=== PATIENT | female | born 1975 | race African-American/Black ===

== ENCOUNTER 2021-11-29 13:46 | Emergency (ER) | payer MEDICAID, OTHER ==
[~2021-11-29] VITALS: Ht 172.7 cm; Wt 90.0 kg
[2021-11-29 15:06] LABS: BASOPHILS % 0.3 % (0.0-2.0); EOSINOPHILS % 1.1 % (0.0-5.0); HEMATOCRIT. 36.8 % (36.0-48.0); HEMOGLOBIN. 12.6 g/dL (12.0-16.0); LYMPHOCYTES % 23.2 % (20.0-50.0); MEAN CORPUSCULAR HEMOGLOBIN 28.7 pg (28.0-32.0); MEAN PLATELET VOLUME 9.3 fl (7.4-10.4); MONOCYTES % 4.7 % (2.0-8.0); NEUTROPHILS % 70.7 % (40.0-76.0); PLATELET 289 x1000/uL (130-400); RED BLOOD CELL COUNT 4.38 mill/uL (4.2-5.4); RED CELL DISTRIBUTION WIDTH 13.8 % (11.6-14.6)
[2021-11-29 15:39] LABS: CHLORIDE 105 mEq/L (98-107)
[2021-11-29] MEDS ORDERED: KETOROLAC 30MG/ML VIAL IV ONE (16:45)
[2021-11-29 17:17] VITALS: BP 117/64
[2021-11-29] MEDS ORDERED: METH-653 MT (18:38)
== END 2021-11-29 20:30 | disposition home or self-care (01) ==
LOC: ER 13:46
DX: R07.9 Chest pain, unspecified (principal); I25.10 Atherosclerotic heart disease of native coronary artery without angina pectoris; E11.9 Type 2 diabetes mellitus without complications; I25.2 Old myocardial infarction; I10 Essential (primary) hypertension; Z95.1 Presence of aortocoronary bypass graft; Z95.5 Presence of coronary angioplasty implant and graft; Z98.890 Other specified postprocedural states
CPT/HCPCS: 36415; 71045; 80053; 81025; 83690; 83880; 84484; 85025; 93005; 96374; 99285; J1885; Z7610

== ENCOUNTER 2022-02-08 02:24 | Inpatient (IN) | payer MEDICAID, OTHER ==
[~2022-02-08] VITALS: Ht 162.6 cm; Wt 117.6 kg
[~2022-02-08 02:24] MED LIST: METH-653 MT
[2022-02-08] MEDS ORDERED: MORPHINE SULFATE 4 MG/ML CPJ (NOT FOR IM USE) IV STA (03:47)
[2022-02-08] MEDS ORDERED: ONDANSETRON HCL 4MG/2ML INJ IV STA (03:47)
[2022-02-08] MEDS ORDERED: PIPERACILLIN/TAZ 3.375G PREMIX 50 ML IV ONE (04:00)
[2022-02-08] MEDS ORDERED: VANCOMYCIN 1G PREMIX 200 ML IV ONE (04:00)
[2022-02-08] MEDS ORDERED: SODIUM CHLORIDE 0.9% 1,000 ML IV ONE (04:00)
[2022-02-08 04:22] LABS: HEMATOCRIT. 27.3 % (36.0-48.0); HEMOGLOBIN. 8.8 g/dL (12.0-16.0); MEAN CORPUSCULAR HEMOGLOBIN 27.9 pg (28.0-32.0); MEAN PLATELET VOLUME 8.8 fl (7.4-10.4); PLATELET 321 x1000/uL (130-400); RED BLOOD CELL COUNT 3.17 mill/uL (4.2-5.4); RED CELL DISTRIBUTION WIDTH 14.9 % (11.6-14.6)
[2022-02-08 04:31] LABS: CHLORIDE 100 mEq/L (98-107)
[2022-02-08 04:34] LABS: HCG SCREEN NEGATIVE
[2022-02-08 05:05] LABS: BETA HYDROXYBUTYRATE 0.2 mMol/L (0.0-0.3)
[2022-02-08] MEDS ORDERED: MORPHINE SULFATE 4 MG/ML CPJ (NOT FOR IM USE) IV NR ×2 (05:45→15:45)
[2022-02-08] MEDS ORDERED: ONDANSETRON HCL 4MG/2ML INJ IV NR ×2 (05:45→15:45)
[2022-02-08 08:30] LABS: PLATELET ESTIMATE NORMAL
[2022-02-08] MEDS ORDERED: IBUPROFEN 600MG TABLET PO ONE (11:45)
[2022-02-08] MEDS ORDERED: ONDANSETRON 4MG ODT PO ONE (12:00)
[2022-02-08 21:48] VITALS: BP 112/60
[2022-02-08] MEDS ORDERED: TICA60TA MT (21:48)
[2022-02-08] MEDS ORDERED: METF-414 MT (21:48)
[2022-02-08] MEDS ORDERED: SITA100T11 MT (21:48)
[2022-02-08] MEDS ORDERED: GABA-290 MT (21:48)
[2022-02-08] MEDS ORDERED: HYDR-4009 MT (21:48)
[2022-02-08] MEDS ORDERED: ASPI-1497 MT (21:48)
[2022-02-08 21:59] VITALS: BP 112/60
[2022-02-08] MEDS ORDERED: DEXTROSE 50% WATER 50ML SYRINGE IV PRN (22:45)
[2022-02-08] MEDS ORDERED: CLONIDINE 0.1MG TABLET PO PRN (22:45)
[2022-02-08] MEDS ORDERED: CEFTRIAXONE 1 G PREMIX 50 ML IV SCH (22:45)
[2022-02-08] MEDS ORDERED: ACETAMINOPHEN 325MG TABLET PO PRN (22:45)
[2022-02-08] MEDS ORDERED: INSULIN GLARGINE 100 UNITS/ML SUBCUT NR (22:45)
[2022-02-08] MEDS: HYDROCODONE/ACETAMINOPHEN 10/325MG TABLET PO PRN (23:11)
[2022-02-08] MEDS: CEFTRIAXONE 1,000 MG in DEXTROSE 5% WATER 50 ML IV SCH (23:11)
[2022-02-08] MEDS: SODIUM CHLORIDE 0.9% 1,000 ML IV SCH (23:13)
[2022-02-08] MEDS: METRONIDAZOLE 500 MG PREMIX 100 ML IV SCH (23:52)
[2022-02-09] VITALS: BP 108/49
[2022-02-09] MEDS ORDERED: VANCOMYCIN 1500MG in DEXTROSE 5% WATER 250ML IV NR ×2
[2022-02-09 04:03] VITALS: BP 104/61
[2022-02-09] MEDS: HYDROCODONE/ACETAMINOPHEN 10/325MG TABLET PO PRN ×4 (04:31→21:02)
[2022-02-09] MEDS: METRONIDAZOLE 500 MG PREMIX 100 ML IV SCH ×3 (06:00→21:02)
[2022-02-09] MEDS: BLOOD SUGAR DIAGNOSTIC STRIP TEST SCH ×4 (06:40→21:00)
[2022-02-09 08:38] VITALS: BP 112/69
[2022-02-09] MEDS: INSULIN LISPRO 100 UNITS/ML SUBCUT SCH ×7 (08:39→21:00)
[2022-02-09] MEDS: ENOXAPARIN 30MG/0.3ML SYR SUBCUT SCH ×2 (10:59→21:02)
[2022-02-09] MEDS: SODIUM CHLORIDE 0.9% 1,000 ML IV SCH ×2 (11:12→21:03)
[2022-02-09] MEDS: VANCOMYCIN 1G PREMIX 200 ML IV SCH (13:07)
[2022-02-09 16:23] LABS: HEMATOCRIT 35.9 % (36.0-48.0); MEAN CORPUSCULAR HEMOGLOBIN 27.7 pg (28.0-32.0); MEAN CORPUSCULAR VOLUME 82.7 fL (81.0-99.0); PLATELET 204 x1000/uL (130-400); RED BLOOD CELL COUNT 4.34 mill/uL (4.2-5.4); RED CELL DISTRIBUTION WIDTH 14.4 % (11.6-14.6)
[2022-02-09 16:40] LABS: CHLORIDE 101 mEq/L (98-107)
[2022-02-09 16:54] LABS: HDL CHOLESTEROL 37 mg/dL (40-59); LDL CHOLESTEROL 60 mg/dL (5-100)
[2022-02-09 17:27] VITALS: BP 115/69
[2022-02-09 18:09] LABS: CLARITY URINE CLOUDY (CLEAR); COLOR URINE DARK YELLOW (YELLOW); KETONES URINE TRACE (NEGATIVE); LEUKOCYTE ESTERASE URINE 1+ (NEGATIVE); NITRITE URINE NEGATIVE (NEGATIVE); OCCULT BLOOD URINE 1+ (NEGATIVE); PROTEIN URINE 2+ (NEGATIVE); SPECIFIC GRAVITY URINE 1.035 (1.005-1.030)
[2022-02-09 20:00] VITALS: BP 105/67
[2022-02-09] MEDS: INSULIN GLARGINE 100 UNITS/ML SUBCUT SCH (21:03)
[2022-02-09] MEDS: CEFTRIAXONE 1,000 MG in DEXTROSE 5% WATER 50 ML IV SCH (23:24)
[2022-02-09 23:44] VITALS: BP 102/55
[2022-02-10] MEDS: VANCOMYCIN 1G PREMIX 200 ML IV SCH (00:04)
[2022-02-10] MEDS: SODIUM CHLORIDE 0.9% 1,000 ML IV SCH ×2 (00:45→09:35)
[2022-02-10] MEDS: HYDROCODONE/ACETAMINOPHEN 10/325MG TABLET PO PRN ×5 (01:10→23:13)
[2022-02-10 04:05] VITALS: BP 98/47
[2022-02-10] MEDS: METRONIDAZOLE 500 MG PREMIX 100 ML IV SCH ×3 (05:16→13:24)
[2022-02-10] MEDS: BLOOD SUGAR DIAGNOSTIC STRIP TEST SCH ×4 (06:33→21:55)
[2022-02-10 08:00] VITALS: BP 95/57
[2022-02-10] MEDS: INSULIN LISPRO 100 UNITS/ML SUBCUT SCH ×7 (08:06→22:21)
[2022-02-10 08:28] LABS: CHLORIDE 103 mEq/L (98-107)
[2022-02-10] MEDS: ENOXAPARIN 30MG/0.3ML SYR SUBCUT SCH ×2 (09:27→21:38)
[2022-02-10 12:00] VITALS: BP 94/54
[2022-02-10] MEDS: VANCOMYCIN 1250MG in DEXTROSE 5% WATER 250ML IV SCH (13:24)
[2022-02-10 16:00] VITALS: BP_SYST 94; BP_SYST 99; BP_DIAS 60; BP_DIAS 61
[2022-02-10] MEDS: ONDANSETRON HCL 4MG/2ML INJ IV PRN (18:39)
[2022-02-10 20:00] VITALS: BP 100/42
[2022-02-10] MEDS: METRONIDAZOLE 500MG TABLET PO SCH ×2 (21:39→22:00)
[2022-02-10] MEDS: INSULIN GLARGINE 100 UNITS/ML SUBCUT SCH (22:20)
[2022-02-10] MEDS ORDERED: DIPHENHYDRAMINE 25MG CAPSULE PO PRN (23:15)
[2022-02-10] MEDS: CEFTRIAXONE 1,000 MG in DEXTROSE 5% WATER 50 ML IV SCH (23:16)
[2022-02-11 00:36] VITALS: BP 109/66
[2022-02-11] MEDS: VANCOMYCIN 1250MG in DEXTROSE 5% WATER 250ML IV SCH ×2 (01:00→13:00)
[2022-02-11 04:00] VITALS: BP 115/74
[2022-02-11] MEDS: HYDROCODONE/ACETAMINOPHEN 10/325MG TABLET PO PRN ×4 (04:53→21:46)
[2022-02-11] MEDS: METRONIDAZOLE 500MG TABLET PO SCH ×3 (06:29→21:45)
[2022-02-11] MEDS: BLOOD SUGAR DIAGNOSTIC STRIP TEST SCH ×4 (06:33→21:51)
[2022-02-11 07:21] LABS: BASOPHILS % 0.3 % (0.0-2.0); EOSINOPHILS % 2.3 % (0.0-5.0); HEMATOCRIT. 32.4 % (36.0-48.0); HEMOGLOBIN. 11.1 g/dL (12.0-16.0); LYMPHOCYTES % 26.1 % (20.0-50.0); MEAN CORPUSCULAR HEMOGLOBIN 28.1 pg (28.0-32.0); MEAN CORPUSCULAR VOLUME 82.4 fL (81.0-99.0); MEAN PLATELET VOLUME 8.9 fl (7.4-10.4); MONOCYTES % 10.5 % (2.0-8.0); NEUTROPHILS % 60.8 % (40.0-76.0); PLATELET 210 x1000/uL (130-400); RED BLOOD CELL COUNT 3.94 mill/uL (4.2-5.4)
[2022-02-11 07:49] LABS: CHLORIDE 104 mEq/L (98-107)
[2022-02-11 08:00] VITALS: BP 99/57
[2022-02-11] MEDS: ENOXAPARIN 30MG/0.3ML SYR SUBCUT SCH ×2 (09:21→21:50)
[2022-02-11] MEDS: INSULIN LISPRO 100 UNITS/ML SUBCUT SCH ×7 (09:23→21:49)
[2022-02-11 12:00] VITALS: BP 90/50
[2022-02-11 16:00] VITALS: BP 115/65
[2022-02-11] MEDS: ONDANSETRON HCL 4MG/2ML INJ IV PRN (17:32)
[2022-02-11] MEDS: SODIUM CHLORIDE 0.9% 1,000 ML IV SCH ×2 (18:00→21:51)
[2022-02-11 20:00] VITALS: BP 114/66
[2022-02-11] MEDS: INSULIN GLARGINE 100 UNITS/ML SUBCUT SCH (21:48)
[2022-02-11] MEDS: CEFTRIAXONE 1,000 MG in DEXTROSE 5% WATER 50 ML IV SCH (22:13)
[2022-02-12] VITALS: BP 119/72
[2022-02-12] MEDS: VANCOMYCIN 1250MG in DEXTROSE 5% WATER 250ML IV SCH (01:00)
[2022-02-12 04:00] VITALS: BP 105/74
[2022-02-12] MEDS: METRONIDAZOLE 500MG TABLET PO SCH ×3 (06:00→14:00)
[2022-02-12] MEDS: BLOOD SUGAR DIAGNOSTIC STRIP TEST SCH ×3 (07:00→17:09)
[2022-02-12] MEDS: HYDROCODONE/ACETAMINOPHEN 10/325MG TABLET PO PRN ×3 (07:00→19:14)
[2022-02-12 07:12] LABS: BASOPHILS % 0.1 % (0.0-2.0); HEMATOCRIT. 35.5 % (36.0-48.0); HEMOGLOBIN. 11.8 g/dL (12.0-16.0); LYMPHOCYTES % 29.1 % (20.0-50.0); MEAN CORPUSCULAR HEMOGLOBIN 27.9 pg (28.0-32.0); MEAN CORPUSCULAR VOLUME 83.8 fL (81.0-99.0); MEAN PLATELET VOLUME 8.3 fl (7.4-10.4); MONOCYTES % 7.7 % (2.0-8.0); NEUTROPHILS % 61.1 % (40.0-76.0); PLATELET 251 x1000/uL (130-400); RED BLOOD CELL COUNT 4.23 mill/uL (4.2-5.4); RED CELL DISTRIBUTION WIDTH 14.1 % (11.6-14.6)
[2022-02-12 07:16] LABS: CHLORIDE 105 mEq/L (98-107)
[2022-02-12] MEDS: INSULIN LISPRO 100 UNITS/ML SUBCUT SCH ×6 (07:40→17:45)
[2022-02-12 08:00] VITALS: BP 104/64
[2022-02-12] MEDS: ENOXAPARIN 30MG/0.3ML SYR SUBCUT SCH (09:00)
[2022-02-12 12:00] VITALS: BP 126/67
[2022-02-12] MEDS ORDERED: INSU100I28 SQ (14:42)
[2022-02-12 16:00] VITALS: BP 104/61
[2022-02-12] MEDS ORDERED: SULF1TAB48 MT (17:14)
[2022-02-12] MEDS ORDERED: NALOXONE HCL 0.4MG/ML VIAL IV PRN (17:15)
[2022-02-12 18:33] VITALS: BP 104/61
[2022-02-12] MEDS ORDERED: SULFAMETHOXAZOLE/TRIMETHOPRIM 800/160MG TABLET PO SCH (21:00)
== END 2022-02-12 20:50 | disposition home health service (06) | DRG 710 ==
LOC: ER 02:24 → 7WST 19:08 → EDBEDREQTM 19:16 → EDBEDREQ 19:16
PROVIDERS: ADMIT Internal Medicine; ATTEND Internal Medicine
PROC: 0LBW0ZZ Excision of Left Foot Tendon, Open Approach (ICD-10-PCS; principal; 2022-02-11)
PROC: 0JBR0ZZ Excision of Left Foot Subcutaneous Tissue and Fascia, Open Approach (ICD-10-PCS; 2022-02-11)
DX: A41.9 Sepsis, unspecified organism (principal); E88.09 Other disorders of plasma-protein metabolism, not elsewhere classified; E11.621 Type 2 diabetes mellitus with foot ulcer; L03.116 Cellulitis of left lower limb; E11.65 Type 2 diabetes mellitus with hyperglycemia; G89.29 Other chronic pain; Z20.822 Contact with and (suspected) exposure to COVID-19; I10 Essential (primary) hypertension; N39.0 Urinary tract infection, site not specified; R65.20 Severe sepsis without septic shock; E11.628 Type 2 diabetes mellitus with other skin complications; I25.2 Old myocardial infarction; Z28.310 Unvaccinated for COVID-19; Z95.1 Presence of aortocoronary bypass graft
CPT/HCPCS: 36415; 71045; 73630; 73721; 80048; 80053; 80061; 80202; 81003; 82010; 82962; 83036; 83605; 83735; 83880; 84145; 84443; 84484; 84703; 85025; 85027; 87426; 87804; 93970; 97162; 97165; 99291; C1893; J0696; J1650; J1815; J2270; J2405; J2543; J3370; J3490; J7030; J7060; Q0162; Q0163

== ENCOUNTER 2022-03-02 16:18 | Emergency (ER) | payer MEDICAID, OTHER ==
[~2022-03-02] VITALS: Ht 167.6 cm; Wt 86.0 kg
[~2022-03-02 16:18] MED LIST changes: +ASPI-1497 MT; +GABA-290 MT; +HYDR-4009 MT; +INSU100I28 SQ; +METF-414 MT; -METH-653 MT; +SULF1TAB48 MT
[2022-03-02 16:28] VITALS: BP 133/89
[2022-03-02] MEDS ORDERED: LIDOCAINE HCL/PF 1% 10 MG/ML 5ML VIAL INFIL ONE (17:15)
[2022-03-02] MEDS ORDERED: BACITRACIN ZINC OINT UDPKT TOP ONE (17:15)
== END 2022-03-02 19:44 ==
LOC: ER 16:37
DX: S61.216A Laceration without foreign body of right little finger without damage to nail, initial encounter (principal); E11.9 Type 2 diabetes mellitus without complications; I25.2 Old myocardial infarction; Z95.1 Presence of aortocoronary bypass graft; Z79.84 Long term (current) use of oral hypoglycemic drugs; Z79.82 Long term (current) use of aspirin; Y08.89XA Assault by other specified means, initial encounter; Y07.03 Male partner, perpetrator of maltreatment and neglect; Y93.89 Activity, other specified; Y92.89 Other specified places as the place of occurrence of the external cause
CPT/HCPCS: 99283; J3490